=== PATIENT | male | born 1995 | race Hispanic/Latino ===

== ENCOUNTER 2024-01-20 06:35 | Day surgery (SDC) | payer SELFPAY ==
[2024-01-20] VITALS (8 sets, daily range): BP systolic 123–150; BP diastolic 51–79; BMI 31.3
[2024-01-20] MEDS: NORMOSOL-R 1000 IV (13:21)
[2024-01-20] MEDS: CELEBREX 200 MG PO (13:41)
[2024-01-20] MEDS: TYLENOL 1000 MG PO (13:41)
== END 2024-01-20 19:04 | disposition home or self-care (01) ==
LOC: SDS 06:35
PROVIDERS: ATTENDING PHYSICIAN Orthopaedic Surgery
DX: S61.215A Laceration without foreign body of left ring finger without damage to nail, initial encounter (principal); S66.125A Laceration of flexor muscle, fascia and tendon of left ring finger at wrist and hand level, initial encounter; X58.XXXA Exposure to other specified factors, initial encounter
CPT/HCPCS: 26356